=== PATIENT | female | born 1950 | race Caucasian/White ===

== ENCOUNTER 2017-06-27 02:25 | Emergency (ER) | payer MEDICARE, OTHER ==
[~2017-06-27] VITALS: Ht 157.5 cm; Wt 113.4 kg
--- OUTSIDE RECORDS SUMMARY | ~2017-06-27 | XMS ---
Demographics + + + | Address | [address] | | | [place] [address] | + + + | Preferred Language | Unknown | + + + | Marital Status | Unknown | + + + | Taoism Affiliation | Unknown | + + + | Race | Unknown | + + + | Ethnic Group | Unknown | + + + Author + + + | Author | [facility] | + + + | Organization | [facility] | + + + | Address | [address] | | | [place] [address] | + + + | Phone | | + + + Care Team Providers + + + + | Care Fuel Retrofitting Technician Name | Role | Phone | + + + + Unavailable | Unavailable | + + + + PROBLEMS +---------+ + + +--------+ + + | Type | Condition | ICD9-CM | [id number] | Onset | Condition | SNOMED | | | | Code | Code | Dates | Status | Code | +---------+ + + +--------+ + + | Problem | Elevated | E79.0 | | | Active | [id number] | | | uric acid | | | | | | | | in blood | | | | | | +---------+ + + +--------+ + + | Problem | Obstructiv | G47.33 | | | Active | 30866961 | | | e sleep | | | | | | | | apnea | | | | | | +---------+ + + +--------+ + + | Problem | Bronchial | J45.909 | | | Active | 690128265 | | | asthma | | | | | | +---------+ + + +--------+ + + | Problem | Screening | Z13.820 | | | Active | 835401343 | | | for | | | | | | | | osteoporos | | | | | | | | is | | | | | | +---------+ + + +--------+ + + | Problem | Dyslipidem | E78.5 | | | Active | 814397497 | | | ia | | | | | | +---------+ + + +--------+ + + | Problem | Colon | C18.9 | | | Active | 899676252 | | | cancer | | | | | | +---------+ + + +--------+ + + | Problem | CHF | | I50.9 | | Active | 47431164 | | | (congestiv | | | | | | | | e heart | | | | | | | | failure) | | | | | | +---------+ + + +--------+ + + | Problem | Coagulopat | D68.9 | | | Active | 66087031 | | | hy | | | | | | +---------+ + + +--------+ + + | Problem | Screening | Z13.89 | | | Active | 400258271 | | | for | | | | | | | | alcoholism | | | | | | +---------+ + + +--------+ + + | Problem | Anemia | | D64.9 | | Active | 796766345 | +---------+ + + +--------+ + + | 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 | | | Active | 263407285 | | | | | | | | | | | unspecifie | | | | | | | | d type | | | | | | | | diabetes | | | | | | | | mellitus | | | | | | | | without | | | | | | | | mention of | | | | | | | | | | | | | | | | complicati | | | | | | | | on, not | | | | | | | | stated as | | | | | | | | uncontroll | | | | | | | | ed | | | | | | +---------+ + + +--------+ + + | 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 | 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 | | | | | | +---------+ + + +--------+ + + | Problem | Morbid | | E66.01 | | Active | 534077547 | | | obesity | | | | | | +---------+ + + +--------+ + + | Problem | CKD stage | N18.3 | | | Active | 886412985 | | | G3b/A1, | | | | | | | | GFR 30-44 | | | | | | | | and | | | | | | | | albumin | | | | | | | | creatinine | | | | | | | | ratio <30 | | | | | | | | mg/g | | | | | | +---------+ + + +--------+ + + | Problem | Heart | I35.9 | | | Active | 5801546 | | | murmur, | | | | | | | | aortic | | | | | | +---------+ + + +--------+ + + | Problem | Diabetes | E11.21 | | | Active | 351043579 | | | mellitus | | | | | | | | with | | | | | | | | nephropath | | | | | | | | y | | | | | | +---------+ + + +--------+ + + | Problem | HTN | | I10 | | Active | 35488186 | | | (hypertens | | | | | | | | ion) | | | | | | +---------+ + + +--------+ + + | Problem | Elevated | E34.9 | | | Active | 440964849 | | | parathyroi | | | | | | | | d hormone | | | | | | +---------+ + + +--------+ + + | Problem | Diabetes | | E11.9 | | Active | 41291934 | | | mellitus | | | | | | +---------+ + + +--------+ + + | Problem | Hypomagnes | | E83.42 | | Active | 231499666 | | | emia | | | | | | +---------+ + + +--------+ + + ALLERGIES Unknown Allergies SOCIAL HISTORY No smoking Hx information available PLAN OF CARE VITAL SIGNS MEDICATIONS Unknown Medications RESULTS No Results PROCEDURES No Known procedures IMMUNIZATIONS No Known Immunizations"
--- OUTSIDE RECORDS SUMMARY | ~2017-06-27 | XMS ---
Demographics + + + | Address | [address] | | | [place] [address] | + + + | Preferred Language | Unknown | + + + | Marital Status | Unknown | + + + | Anglican Affiliation | Unknown | + + + | Race | Unknown | + + + | Ethnic Group | Unknown | + + + Author + + + | Author | [facility] | + + + | Organization | [facility] | + + + | Address | [address] | | | [place] [address] | + + + | Phone | | + + + Care Team Providers + + + + | Care Computer Aided Design Technician Name | Role | Phone | + + + + Unavailable | Unavailable | + + + + PROBLEMS +---------+ + + +--------+ + + | Type | Condition | ICD9-CM | [id number] | Onset | Condition | SNOMED | | | | Code | Code | Dates | Status | Code | +---------+ + + +--------+ + + | Problem | Elevated | E79.0 | | | Active | 860655160 | | | uric acid | | | | | | | | in blood | | | | | | +---------+ + + +--------+ + + | Problem | Obstructiv | G47.33 | | | Active | 03993566 | | | e sleep | | | | | | | | apnea | | | | | | +---------+ + + +--------+ + + | Problem | Bronchial | J45.909 | | | Active | 303041566 | | | asthma | | | | | | +---------+ + + +--------+ + + | Problem | Screening | Z13.820 | | | Active | 913660140 | | | for | | | | | | | | osteoporos | | | | | | | | is | | | | | | +---------+ + + +--------+ + + | Problem | Proteinuri | | R80.9 | | Active | 34187130 | | | a | | | | | | +---------+ + + +--------+ + + | Problem | Colon | C18.9 | | | Active | 845685747 | | | cancer | | | | | | +---------+ + + +--------+ + + | Problem | CKD stage | N18.3 | | | Active | 737734782 | | | G3b/A1, | | | [...] | | E66.01 | | Active | 930520436 | | | obesity | | | | | | +---------+ + + +--------+ + + | Problem | CHF | | I50.9 | | Active | 86451808 | | | (congestiv | | | | | | | | e heart | | | | | | | | failure) | | | | | | +---------+ + + +--------+ + + | Problem | Coagulopat | D68.9 | | | Active | 44825899 | | | hy | | | | | | +---------+ + + +--------+ + + | Problem | Screening | Z13.89 | | | Active | 996257009 | | | for | | | | | | | | alcoholism | | | | | | +---------+ + + +--------+ + + | Problem | Anemia | | D64.9 | | Active | 949511398 | +---------+ + + +--------+ + + | 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 | | | Active | 284213149 | | | | | | | [...] | D68.59 | | | Active | 0875685 | | | deficiency | | | | | | +---------+ + + +--------+ + + | Problem | Vitamin D | | E55.9 | | Active | 68548782 | | | deficiency | | | | | | +---------+ + + +--------+ + + | 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 | | | | | | | | origin) | | | | | | +---------+ + + +--------+ + + | Problem | Heart | I35.9 | | | Active | 1862931 | | | murmur, | | | | | | | | aortic | | | | | | +---------+ + + +--------+ + + | Problem | Diabetes | E11.21 | | | Active | 119644733 | | | mellitus | | | | | | | | with | | | | | | | | nephropath | | | | | | | | y | | | | | | +---------+ + + +--------+ + + | Problem | HTN | | I10 | | Active | 85688133 | | | (hypertens | | | | | | | | ion) | | | | | | +---------+ + + +--------+ + + | Problem | Elevated | E34.9 | | | Active | 802296725 | | | parathyroi | | | | | | | | d hormone | | | | | | +---------+ + + +--------+ + + | Problem | Dyslipidem | E78.5 | | | Active | 584158238 | | | ia | | | | | | +---------+ + + +--------+ + + | Problem | Diabetes | | E11.9 | | Active | 93669644 | | | mellitus | | | | | | +---------+ + + +--------+ + + | Problem | Hypomagnes | | E83.42 | | Active | 830203501 | | | emia | | | | | | +---------+ + + +--------+ + + ALLERGIES + + + + +--------+ | Substance | Reaction | Event Type | Date | Status | + + + + +--------+ | Clindamycin | Unknown | Drug Allergy | Feb, | Active | + + + + +--------+ | Lisinipril | Unknown | Drug Allergy | Feb, | Active | + + + + +--------+ | Procardia | Unknown | Drug Allergy | Feb, | Active | + + + + +--------+ | HydrALAZINE HCl | Unknown | Drug Allergy | Feb, | Active | + + + + +--------+ | Erythromycin | Unknown | Drug Allergy | Feb, | Active | + + + + +--------+ | Clonidine HCl | Unknown | Drug Allergy | Feb, | Active | + + + + +--------+ | Carvedilol | Unknown | Drug Allergy | Feb, | Active | + + + + +--------+ | Aspirin | Unknown | Drug Allergy | Feb, | Active | + + + + +--------+ SOCIAL HISTORY No smoking Hx information available PLAN OF CARE + +---------+ | Activity | Details | + +---------+ +---+ | | +---+ + + + | Follow Up | 2 Months Reason:null | + + + | Pending Test | Hemocult cancer screen [place] | + + + | Pending Test | DEXA Hip and Spine | + + + VITAL SIGNS + + + + | Height | 62 in | 2017-02-17 | + + + + | Weight | 250 lbs | 2017-02-17 | + + + + | BMI | 45.72 kg/m2 | 2017-02-17 | + + + + | Temperature | 97.5 degrees Fahrenheit | 2017-02-17 | + + + + | Heart Rate | 61 /min | 2017-02-17 | + + + + | Blood pressure systolic | 156 mm Hg | 2017-02-17 | + + + + | Blood pressure diastolic | 77 mm Hg | 2017-02-17 | + + + + MEDICATIONS + + + + + + + +--------+ | Medicati | Instruct | Dosage | Frequenc | Start | End Date | Duration | Status | | on | ions | | y | Date | | | | + + + + + + + +--------+ | Warfarin | Orally | 1 tablet | | | | | Active | | Sodium | Once a | | | | | | | | 7.5 MG | day | | | | | | | | | except | | | | | | | | | 5mg | | | | | | | | | tuesday | | | | | | | | | and | | | | | | | | | tuesday | | | | | | | + + + + + + + +--------+ | Ventolin | Inhalati | 2 puffs | 4h | | | 30 days | Active | | HFA 108 | on every | as | | | | | | | (90 | 4 hrs | needed | | | | | | | Base) | | | | | | | | | MCG/ACT | | | | | | | | + + + + + + + +--------+ | Nasal | | | | | | | Active | | Deconges | | | | | | | | | tant | | | | | | | | + + + + + + + +--------+ | Loratadi | Orally | 1 tablet | 24h | | | | Active | | ne 10 MG | Once a | | | | | | | | | day | | | | | | | + + + + + + + +--------+ | BusPIRon | Orally | 1 tablet | 12h | | | | Active | | e HCl 15 | Twice a | | | | | | | | MG | day | | | | | | | + + + + + + + +--------+ | Allopuri | Orally | 1 tablet | 24h | | | | Active | | nol 100 | Once a | | | | | | | | MG | day | | | | | | | + + + + + + + +--------+ | Lipitor | Orally | 1 tablet | 24h | | | 90 days | Active | | 40 | Once a | | | | | | | | | day | | | | | | | + + + + + + + +--------+ | Metoprol | Orally | 1/2 | 12h | | | | Active | | ol | Twice a | tablet | | | | | | | Tartrate | day | | | | | | | | 200 mg | | | | | | | | + + + + + + + +--------+ | Losartan | Orally | 0.5 | 24h | Sep, | | 60 days | Active | | | Once a | | | 2017 | | | | | Potassiu | day | | | | | | | | m 25 MG | | | | | | | | + + + + + + + +--------+ | Amlodipi | Orally | 1 tablet | 24h | | | | Active | | ne | Once a | | | | | | | | Besylate | day | | | | | | | | 10 MG | | | | | | | | + + + + + + + +--------+ | Vaniqa | External | 1 | 12h | | | | Active | | 13.9 % | ly Twice | applicat | | | | | | | | a day | ion a | | | | | | | | | thin | | | | | | | | | film to | | | | | | | | | affected | | | | | | | | | area | | | | | | + + + + + + + +--------+ | Folbee | Orally | 1 tablet | 24h | | | | Active | | 2.5-25-1 | Once a | | | | | | | | MG | day | | | | | | | + + + + + + + +--------+ | Qvar 80 | Inhalati | 2 puffs | 12h | | | | Active | | MCG/ACT | on Twice | | | | | | | | | a day | | | | | | | + + + + + + + +--------+ | Vitamin | Orally | 1 | | | | 90 | Active | | D | Once a | capsule | | | | | | | (Ergocal | Week | | | | | | | | ciferol) | | | | | | | | | [address] | | | | | | | | | UNIT | | | | | | | | + + + + + + + +--------+ | Ipratrop | Inhalati | 3 ml | 6h | | | | Active | | ium-Albu | on Four | | | | | | | | terol | times a | | | | | | | | 0.5-2.5 | day | | | | | | | | (3) | | | | | | | | | MG/3ML | | | | | | | | + + + + + + + +--------+ | Humalog | kwik pen | as | | | | | Active | | 100 | 2units | directed | | | | | | | UNIT/ML | per 5 | per | | | | | | | | carbs | sliding | | | | | | | | | scale | | | | | | + + + + + + + +--------+ | Lantus | | 40 UNITS | | | | 30 | Active | | 100 | | ONCE A | | | | | | | UNIT/ML | | DAY | | | | | | | | | SUBCUTAN | | | | | | | | | EOUS 30 | | | | | | | | | DAYAS | | | | | | + + + + + + + +--------+ | Singulai | orally | 1 | 24h | | | | Active | | r 10 mg | Once a | tablets | | | | | | | | day | in the | | | | | | | | | evening | | | | | | + + + + + + + +--------+ | Ranitidi | Orally | as | 24h | Mar, | | 30 | Active | | ne HCl | daily | directed | | 2016 | | day(s) | | | 75 mg | | | | | | | | + + + + + + + +--------+ RESULTS No Results PROCEDURES + + + + + | Procedure | Date Ordered | Related Diagnosis | Body Site | + + + + + | Office Visit, Est | February 17, 2017 | | | | Pt., Level 4 | | | | + + + + + | [facility] MED/CURRENT | February 17, 2017 | | | | MED MERGE | | | | + + + + + IMMUNIZATIONS No Known Immunizations"
--- OUTSIDE RECORDS SUMMARY | ~2017-06-27 | XMS ---
Demographics + + + | Address | [address] | | | [place] [address] | + + + | Preferred Language | Unknown | + + + | Marital Status | Unknown | + + + | Orthodoxy Affiliation | Unknown | + + + | Race | Unknown | + + + | Ethnic Group | Unknown | + + + Author + + + | Author | [facility] | + + + | Organization | [facility] | + + + | Address | [address] | | | [place] [address] | + + + | Phone | | + + + Care Team Providers + + + + | Care Property Appraiser Name | Role | Phone | + + + + Unavailable | Unavailable | + + + + PROBLEMS +---------+ + + +--------+ + + | Type | Condition | ICD9-CM | [id number] | Onset | Condition | SNOMED | | | | Code | Code | Dates | Status | Code | +---------+ + + +--------+ + + | Problem | Elevated | E79.0 | | | Active | 226222152 | | | uric acid | | | | | | | | in blood | | | | | | +---------+ + + +--------+ + + | Problem | Obstructiv | G47.33 | | | Active | 32922806 | | | e sleep | | | | | | | | apnea | | | | | | +---------+ + + +--------+ + + | Problem | Bronchial | J45.909 | | | Active | 581560940 | | | asthma | | | | | | +---------+ + + +--------+ + + | Problem | Screening | Z13.820 | | | Active | 557280202 | | | for | | | | | | | | osteoporos | | | | | | | | is | | | | | | +---------+ + + +--------+ + + | Problem | Proteinuri | | R80.9 | | Active | 44677146 | | | a | | | | | | +---------+ + + +--------+ + + | Problem | Colon | C18.9 | | | Active | 914399066 | | | cancer | | | | | | +---------+ + + +--------+ + + | Problem | CKD stage | N18.3 | | | Active | 978538695 | | | G3b/A1, | | | [...] | | E66.01 | | Active | 275008337 | | | obesity | | | | | | +---------+ + + +--------+ + + | Problem | CHF | | I50.9 | | Active | 70688467 | | | (congestiv | | | | | | | | e heart | | | | | | | | failure) | | | | | | +---------+ + + +--------+ + + | Problem | Coagulopat | D68.9 | | | Active | 56434771 | | | hy | | | | | | +---------+ + + +--------+ + + | Problem | Screening | Z13.89 | | | Active | 063549064 | | | for | | | | | | | | alcoholism | | | | | | +---------+ + + +--------+ + + | Problem | Anemia | | D64.9 | | Active | 360270934 | +---------+ + + +--------+ + + | 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 | | | Active | 857727013 | | | | | | | [...] | D68.59 | | | Active | 3147339 | | | deficiency | | | | | | +---------+ + + +--------+ + + | Problem | Vitamin D | | E55.9 | | Active | 50521878 | | | deficiency | | | | | | +---------+ + + +--------+ + + | 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 | | | | | | | | (of renal | | | | | | | | origin) | | | | | | +---------+ + + +--------+ + + | Problem | Heart | I35.9 | | | Active | 0177716 | | | murmur, | | | | | | | | aortic | | | | | | +---------+ + + +--------+ + + | Problem | Diabetes | E11.21 | | | Active | 847517417 | | | mellitus | | | | | | | | with | | | | | | | | nephropath | | | | | | | | y | | | | | | +---------+ + + +--------+ + + | Problem | HTN | | I10 | | Active | 38539607 | | | (hypertens | | | | | | | | ion) | | | | | | +---------+ + + +--------+ + + | Problem | Elevated | E34.9 | | | Active | 507401019 | | | parathyroi | | | | | | | | d hormone | | | | | | +---------+ + + +--------+ + + | Problem | Dyslipidem | E78.5 | | | Active | 531899694 | | | ia | | | | | | +---------+ + + +--------+ + + | Problem | Diabetes | | E11.9 | | Active | 19239387 | | | mellitus | | | | | | +---------+ + + +--------+ + + | Problem | Hypomagnes | | E83.42 | | Active | 633599005 | | | emia | | | [...] + + + | Follow Up | prn Reason:null | + + + VITAL SIGNS + + + + | Height | 62 in | 2017-03-08 | + + + + | Weight | 250 lbs | 2017-03-08 | + + + + | BMI | 45.72 kg/m2 | 2017-03-08 | + + + + | Temperature | 98.0 degrees Fahrenheit | 2017-03-08 | + + + + | Heart Rate | 59 /min | 2017-03-08 | + + + + | Blood pressure systolic | 149 mm Hg | 2017-03-08 | + + + + | Blood pressure diastolic | 67 mm Hg | 2017-03-08 | + + + + MEDICATIONS + [...] | | | | | | | [id number] | | | | | | | | | UNIT | | | | | | | | + + + + + + + +--------+ | Tramadol | Orally | 1 tablet | 6h | 20 Jan, | 30 Jan, | 10 days | Active | | HCl 50 | every 6 | as | | 2017 | 2017 | | | | mg | hrs | needed | | | | | | + [...] | Orally | as | 24h | 08 Fawad, | | 30 | Active | | ne HCl | daily | directed | | 2015 | | day(s) | | | 75 [...] + + | Office Visit, Est | March 08, 2017 | | | | Pt., Level 3 | | | | + + + + + | [facility] MED/CURRENT | March 08, 2017 | | | | MED MERGE | | | | + + + + + IMMUNIZATIONS No Known Immunizations"
[~2017-06-27 02:25] MED LIST: ACETAMINOPHEN325 M1 PO; ALLOPURINOL100 MG PO; AMLODIPINE BESY10 MG PO; ATORVASTATIN CA40 MG PO; BUSPIRONE HCL15 MG PO; CARVEDILOL3.125 MG PO; COUMADIN10 MG PO; COUMADIN5 MG PO; COUMADIN7.5 MG PO; COZAAR100 MG PO; FLOVENT HFA12 G1 INH; FOLBEE PLUS CZ1 EACH PO; HUMALOG100 UNIT/1 SUB-Q; LABETALOL HCL200 MG PO; LANSOPRAZOLE30 MG PO; LANTUS100 UNITS/ SUB-Q; LOSARTAN POTASS25 MG PO; LOSARTAN POTASS50 MG PO; METOLAZONE5 MG PO; METOPROLOL SUCC25 MG PO; MINIPRESS5 MG PO; NEPHRO-VITE TA0.8 MG PO; NORCO 5-325 TA1 EACH PO; PRILOSEC20 MG PO; PROVENTIL HFA6.7 GM INH; QVAR7.3 G1 INH; SINGULAIR10 MG PO; TORSEMIDE20 MG PO; VITAMIN D250000 UNIT PO; WARFARIN SODIUM5 MG PO
[2017-06-27] MEDS ORDERED: NORCO 5-325 TA1 EACH PO (03:20)
== END 2017-06-27 04:58 | disposition home or self-care (01) ==
LOC: ED 02:25
DX: S42.202A Unspecified fracture of upper end of left humerus, initial encounter for closed fracture (principal); I12.9 Hypertensive chronic kidney disease with stage 1 through stage 4 chronic kidney disease, or unspecified chronic kidney disease; E11.22 Type 2 diabetes mellitus with diabetic chronic kidney disease; N18.3 Chronic kidney disease, stage 3 (moderate); J45.909 Unspecified asthma, uncomplicated; Z86.711 Personal history of pulmonary embolism; Z86.718 Personal history of other venous thrombosis and embolism; Z87.891 Personal history of nicotine dependence; Z90.710 Acquired absence of both cervix and uterus; Z90.49 Acquired absence of other specified parts of digestive tract; Z88.6 Allergy status to analgesic agent; Z88.1 Allergy status to other antibiotic agents; Z79.899 Other long term (current) drug therapy; Z79.01 Long term (current) use of anticoagulants; Z79.4 Long term (current) use of insulin; W01.0XXA Fall on same level from slipping, tripping and stumbling without subsequent striking against object, initial encounter
CPT/HCPCS: 73030; 73060; 96374; 99283; J1170

== ENCOUNTER 2022-01-25 06:34 | Emergency (ER) | payer MEDICARE, OTHER ==
[~2022-01-25] VITALS: Ht 157.5 cm; Wt 142.5 kg
[~2022-01-25 06:34] MED LIST changes: +CALCITRIOL0.25 MCG PO; +ESCITALOPRAM OX10 MG PO; +FAMOTIDINE20 MG PO; +FLUTICASONE PRO16 GM NAS; +METOLAZONE2.5 MG PO; +METOPROLOL SUC200 MG PO; +VITAMIN D21250 MCG PO; -VITAMIN D250000 UNIT PO
== END 2022-01-25 07:37 ==
LOC: ED 06:34
DX: I46.9 Cardiac arrest, cause unspecified (principal); I12.9 Hypertensive chronic kidney disease with stage 1 through stage 4 chronic kidney disease, or unspecified chronic kidney disease; N18.30 Chronic kidney disease, stage 3 unspecified; E11.22 Type 2 diabetes mellitus with diabetic chronic kidney disease; Z86.718 Personal history of other venous thrombosis and embolism; J45.909 Unspecified asthma, uncomplicated; Z88.8 Allergy status to other drugs, medicaments and biological substances; Z88.1 Allergy status to other antibiotic agents; Z79.899 Other long term (current) drug therapy; Z79.4 Long term (current) use of insulin; Z79.01 Long term (current) use of anticoagulants
CPT/HCPCS: 31500; 36680; 92950; 99285-25; J0171